=== PATIENT | male | born 1935 | race Hispanic/Latino ===

== ENCOUNTER 2016-06-24 11:32 | Outpatient (CLI) | payer MEDICARE ==
--- NOTE | 2016-06-24 12:07 | XRay Report ---
Abdomen: History abdominal pain. Findings: No bowel distention or wall thickening. Calcified abdominal aorta and iliac vessels. Calcified splenic vessels. Impression: No bowel distention.
== END 2016-06-24 11:33 | disposition home or self-care (01) ==
LOC: SPVIMAG 11:32
PROVIDERS: ATTEND Internal Medicine
DX: R10.9 Unspecified abdominal pain (principal)
CPT/HCPCS: 74000

== ENCOUNTER 2017-04-06 12:03 | Outpatient (CLI) | payer MEDICARE ==
--- NOTE | 2017-04-06 13:13 | XRay Report ---
XRAY CHEST TWO VIEWS: 04/06/17 12:03:00 CLINICAL: Pneumonia. COMPARISON: 04/15/08 FINDINGS: Mild cardiomegaly and central vascular congestion. Aortic tortuosity and elongation. Aortic calcification.Streaky opacities in the right lower lobe and blunting of the right costophrenic angle. Right upper lung is clear. The left lung is clear.The bones and soft tissues are unremarkable. IMPRESSION: Right lower lobe pneumonia with a small pleural effusion.Cardiomegaly but no CHF.
== END 2017-04-06 12:04 | disposition home or self-care (01) ==
LOC: SPVIMAG 12:03
PROVIDERS: ATTEND Internal Medicine
DX: J15.9 Unspecified bacterial pneumonia (principal); I51.7 Cardiomegaly; J90 Pleural effusion, not elsewhere classified; I70.0 Atherosclerosis of aorta; R09.89 Other specified symptoms and signs involving the circulatory and respiratory systems
CPT/HCPCS: 71020

== ENCOUNTER 2017-04-19 10:05 | Outpatient (CLI) | payer MEDICARE ==
--- NOTE | 2017-04-19 11:04 | XRay Report ---
PA and lateral chest: Comparison is made to recent exam on April 06, 2017. The infiltrate seen in the right lung base at that time has almost completely resolved with a very minimal amount of residual density still present at the costophrenic angle. Of note however is an area of mild inhomogeneous density newly identified above the right mid lung scar. The chest is otherwise unchanged. The cardiac contour may be slightly enlarged. No vascular congestion. Impression: 1. Almost complete resolution of right basilar infiltrate. 2. New area of right midlung atelectasis/infiltrate.
== END 2017-04-19 10:06 | disposition home or self-care (01) ==
LOC: SPVIMAG 10:05
PROVIDERS: ATTEND Internal Medicine
DX: J15.9 Unspecified bacterial pneumonia (principal)
CPT/HCPCS: 71046